=== PATIENT | male | born 1965 | race Two or more races ===

== ENCOUNTER 2019-09-11 20:42 | Emergency (ER) | payer SELFPAY ==
[2019-09-11] MEDS ORDERED: Sodium Chloride 0.9% 10 ML SDV IV ONE (20:43)
--- NOTE | 2019-09-11 21:09 | EDM.PDOC ---
ED HPI GENERAL MEDICAL PROBLEM - General Chief Complaint: Lower Extremity Injury/Pain Stated Complaint: PAIN IN RIGHT LEG Time Seen by Provider: 09/11/19 21:02 Source of Information: Reports: Patient - History of Present Illness INITIAL COMMENTS - FREE TEXT/NARRATIVE: HISTORY AND PHYSICAL: History of present illness: [Patient complains of pain concerning the right epididymis testicle is high [place] no mass scarred lesion is appreciated on exam tender epididymis and the right, patient complains of some perirectal pain while sitting he has no fever nausea vomiting chills sweats no chest pain shortness breath headache dizziness palpitation no bowel or urine symptoms ] Review of systems: As per history of present illness and below otherwise all systems reviewed and negative. Past medical history: As per history of present illness and as reviewed below otherwise noncontributory. Surgical history: As per history of present illness and as reviewed below otherwise noncontributory. Social history: No reported history of drug or alcohol abuse. Family history: As per history of present illness and as reviewed below otherwise noncontributory. Physical exam: HEENT: Atraumatic, normocephalic, pupils reactive, negative for conjunctival pallor or scleral icterus, mucous membranes moist, throat clear, neck supple, nontender, trachea midline. Lungs: Clear to auscultation, breath sounds equal bilaterally, chest nontender. Heart: S1S2, regular, negative for clicks, rubs, or JVD. Abdomen: Soft, nondistended, nontender. Negative for masses or hepatosplenomegaly. Negative for costovertebral tenderness. Pelvis: Stable nontender. Genitourinay As per history of present illness recctal: Deferred by patient Extremities: Atraumatic, negative for cords or calf pain. Neurovascular unremarkable. Neuro: Awake, alert, oriented. Cranial nerves II through XII unremarkable. Cerebellum unremarkable. Motor and sensory unremarkable throughout. Exam nonfocal. Diagnostics: [EBC CMP UA GC Chlamydia Scrotum and contents ultrasound ] Therapeutics: [ insulin 5 units subcutaneous Rocephin 1 g IM Azithromycin 1 g by mouth Keflex 500 by mouth twice a day #20 no refill ] Impression: [ right epididymitis hyperglycemia Chronic history of baseline ] Definitive disposition and diagnosis as appropriate pending reevaluation and review of above. Right Groin Pain Score (Numeric/FACES): 7 - Related Data Allergies Allergy/AdvReac Type Severity Reaction Status Date / Time Penicillins Allergy Rash Verified 09/11/19 20:59 Home Meds: Home Meds Losartan Potassium 100 mg PO DAILY 09/11/19 [History] Metoprolol Succinate [Toprol XL] 25 mg PO DAILY 09/11/19 [History] atorvaSTATin [Lipitor] 40 mg PO DAILY 09/11/19 [History] metFORMIN HCl [Fortamet] 1,000 mg PO BID 09/11/19 [History] Past Medical History HEENT History: Reports: None Cardiovascular History: Reports: High Cholesterol, Hypertension Respiratory History: Reports: None Gastrointestinal History: Reports: None Genitourinary History: Reports: None Musculoskeletal History: Reports: None Neurological History: Reports: None Psychiatric History: Reports: None Endocrine/Metabolic History: Reports: Diabetes, Type II Hematologic History: Reports: None Immunologic History: Reports: None Oncologic (Cancer) History: Reports: None Dermatologic History: Reports: None - Infectious Disease History Infectious Disease History: Reports: None - Past Surgical History Head Surgeries/Procedures: Reports: None Social & Family History - Tobacco Use Smoking Status *Q: Never Smoker - Recreational Drug Use Recreational Drug Use: No Review of Systems - Review of Systems Review Of Systems: See Below ED EXAM, GENERAL - Physical Exam Exam: See Below Course - Vital Signs Last Recorded V/S: Last Vital Signs Temp 96.6 F 09/11/19 20:57 Pulse 82 09/11/19 20:57 Resp 16 09/11/19 20:57 BP 173/92 H 09/11/19 20:57 Pulse Ox 99 09/11/19 20:57 - Orders/Labs/Meds Orders: Active Orders 24 hr Category Date Time Status Scrotal Duplex Ltd [US] Routine Exams 09/11/19 21:50 Taken CHLAMYDIA AND GONORRHEA BY [facility] Stat Lab 09/11/19 21:15 Received Labs: Laboratory Tests 09/11/19 09/11/19 09/11/19 Range/Units 21:15 21:27 21:27 WBC 8.77 (4.0-11.0) K/uL RBC 5.06 (4.50-5.90) M/uL Hgb 14.8 (13.0-17.0) g/dL Hct 42.4 (38.0-50.0) % MCV 83.8 (80.0-98.0) fL MCH 29.2 (27.0-32.0) pg MCHC 34.9 (31.0-37.0) g/dL RDW Std Deviation 37.3 (28.0-62.0) fl RDW Coeff of Chavez 12 (11.0-15.0) % Plt Count 283 (150-400) K/uL MPV 10.90 (7.40-12.00) fL Neut % (Auto) 64.3 (48.0-80.0) % Lymph % (Auto) 25.7 (16.0-40.0) % Hardy % (Auto) 7.9 (0.0-15.0) % Eos % (Auto) 1.8 (0.0-7.0) % Baso % (Auto) 0.3 (0.0-1.5) % Neut # (Auto) 5.6 (1.4-5.7) K/uL Lymph # (Auto) 2.3 (0.6-2.4) K/uL Hardy # (Auto) 0.7 (0.0-0.8) K/uL Eos # (Auto) 0.2 (0.0-0.7) K/uL Baso # (Auto) 0.0 (0.0-0.1) K/uL Nucleated RBC % 0.0 /100WBC Nucleated RBCs # 0 K/uL Sodium 137 (136-148) mmol/L Potassium 4.2 (3.5-5.1) mmol/L Chloride 100 (98-107) mmol/L Carbon Dioxide 27.5 (21.0-32.0) mmol/L BUN 20 H (7.0-18.0) mg/dL Creatinine 1.2 (0.8-1.3) mg/dL Est Cr Clr Drug Dosing 58.24 mL/min Estimated GFR (MDRD) > 60.0 ml/min Glucose 337 H (74-106) mg/dL Calcium 8.9 (8.5-10.1) mg/dL Total Bilirubin 0.5 (0.2-1.0) mg/dL AST 17 (15-37) IU/L ALT 23 (14-63) IU/L Alkaline Phosphatase 120 H (46-116) U/L Troponin I < 0.050 (0.000-0.056) ng/mL Total Protein 7.6 (6.4-8.2) g/dL Albumin 3.4 (3.4-5.0) g/dL Globulin 4.2 H (2.6-4.0) g/dL Albumin/Globulin Ratio 0.8 L (0.9-1.6) Prostate Specific Ag (0.05-4.00) ng/mL Urine Color YELLOW Urine Appearance CLEAR Urine pH 6.0 (5.0-8.0) Ur Specific [place] 1.015 (1.001-1.035) Urine Protein 100 H (NEGATIVE) mg/dL Urine Glucose (UA) >=1000 (NEGATIVE) mg/dL Urine Ketones NEGATIVE (NEGATIVE) mg/dL Urine Occult Blood SMALL H (NEGATIVE) Urine Nitrite NEGATIVE (NEGATIVE) Urine Bilirubin NEGATIVE (NEGATIVE) Urine Urobilinogen 0.2 (<2.0) EU/dL Ur Leukocyte Esterase NEGATIVE (NEGATIVE) Urine RBC 1-3 (0-2/HPF) Urine WBC 0-1 (0-5/HPF) Ur Epithelial Cells RARE (NONE-FEW) Urine Bacteria RARE (NEGATIVE) 09/11/19 Range/Units 21:27 WBC (4.0-11.0) K/uL RBC (4.50-5.90) M/uL Hgb (13.0-17.0) g/dL Hct (38.0-50.0) % MCV (80.0-98.0) fL MCH (27.0-32.0) pg MCHC (31.0-37.0) g/dL RDW Std Deviation (28.0-62.0) fl RDW Coeff of Chavez (11.0-15.0) % Plt Count (150-400) K/uL MPV (7.40-12.00) fL Neut % (Auto) (48.0-80.0) % Lymph % (Auto) (16.0-40.0) % Hardy % (Auto) (0.0-15.0) % Eos % (Auto) (0.0-7.0) % Baso % (Auto) (0.0-1.5) % Neut # (Auto) (1.4-5.7) K/uL Lymph # (Auto) (0.6-2.4) K/uL Hardy # (Auto) (0.0-0.8) K/uL Eos # (Auto) (0.0-0.7) K/uL Baso # (Auto) (0.0-0.1) K/uL Nucleated RBC % /100WBC Nucleated RBCs # K/uL Sodium (136-148) mmol/L Potassium (3.5-5.1) mmol/L Chloride (98-107) mmol/L Carbon Dioxide (21.0-32.0) mmol/L BUN (7.0-18.0) mg/dL Creatinine (0.8-1.3) mg/dL Est Cr Clr Drug Dosing mL/min Estimated GFR (MDRD) ml/min Glucose (74-106) mg/dL Calcium (8.5-10.1) mg/dL Total Bilirubin (0.2-1.0) mg/dL AST (15-37) IU/L ALT (14-63) IU/L Alkaline Phosphatase (46-116) U/L Troponin I (0.000-0.056) ng/mL Total Protein (6.4-8.2) g/dL Albumin (3.4-5.0) g/dL Globulin (2.6-4.0) g/dL Albumin/Globulin Ratio (0.9-1.6) Prostate Specific Ag 1.99 (0.05-4.00) ng/mL Urine Color Urine Appearance Urine pH (5.0-8.0) Ur Specific [place] (1.001-1.035) Urine Protein (NEGATIVE) mg/dL Urine Glucose (UA) (NEGATIVE) mg/dL Urine Ketones (NEGATIVE) mg/dL Urine Occult Blood (NEGATIVE) Urine Nitrite (NEGATIVE) Urine Bilirubin (NEGATIVE) Urine Urobilinogen (<2.0) EU/dL Ur Leukocyte Esterase (NEGATIVE) Urine RBC (0-2/HPF) Urine WBC (0-5/HPF) Ur Epithelial Cells (NONE-FEW) Urine Bacteria (NEGATIVE) Meds: Medications Discontinued Medications Generic Name Dose Route Start Last Admin Trade Name Freq PRN Reason Stop Dose Admin Azithromycin 1,000 mg 09/11/19 22:46 Zithromax PO 09/11/19 22:47 NOW STA Ceftriaxone Sodium 1 gm 09/11/19 22:45 Rocephin IM 09/11/19 22:46 ONETIME ONE Lidocaine HCl Confirm 09/11/19 23:03 09/11/19 23:06 Xylocaine-Mpf 1% Administered 09/11/19 23:04 Not Given Dose 4 mls @ as directed .ROUTE .STK-MED ONE Insulin Human Regular 5 unit 09/11/19 22:02 09/11/19 22:28 Novolin R SUBCUT 09/11/19 22:03 5 unit NOW STA Administration Protocol Lidocaine HCl 2.1 ml 09/11/19 23:03 Xylocaine-Mpf 1% INJECT 09/11/19 23:04 ONETIME ONE Departure - Departure Time of Disposition: 23:10 Disposition: Home, Self-Care 01 Condition: Good Clinical Impression: Epididymitis - Discharge Information Referrals: PCP,None [Primary Care Provider] - Forms: ED Department Discharge Additional Instructions: The following information is given to patients seen in the emergency department who are being discharged to home. This information is to outline your options for follow-up care. We provide all patients seen in our emergency department with a follow-up referral. The need for follow-up, as well as the timing and circumstances, are variable depending upon the specifics of your emergency department visit. If you don't have a primary care physician on staff, we will provide you with a referral. We always advise you to contact your personal physician following an emergency department visit to inform them of the circumstance of the visit and for follow-up with them and/or the need for any referrals to a consulting specialist. The emergency department will also refer you to a specialist when appropriate. This referral assures that you have the opportunity for follow-up care with a specialist. All of these measure are taken in an effort to provide you with optimal care, which includes your follow-up. Under all circumstances we always encourage you to contact your private physician who remains a resource for coordinating your care. When calling for follow-up care, please make the office aware that this follow-up is from your recent emergency room visit. If for any reason you are refused follow-up, please contact the [facility] emergency department at and asked to speak to the emergency department charge nurse. - My Orders Last 24 Hours: My Active Orders 09/11/19 21:15 CHLAMYDIA AND GONORRHEA BY [facility] Stat 09/11/19 21:50 Scrotal Duplex Ltd [US] Routine - Assessment/Plan Last 24 Hours: My Active Orders 09/11/19 21:15 CHLAMYDIA AND GONORRHEA BY [facility] Stat 09/11/19 21:50 Scrotal Duplex Ltd [US] Routine
[2019-09-11 21:55] LABS: BLOOD UREA NITROGEN,BUN 20 mg/dL (7.0-18.0); CARBON DIOXIDE,CO2 27.5 mmol/L (21.0-32.0); CHLORIDE,CL 100 mmol/L (98-107); GLUCOSE RANDOM 337 mg/dL (74-106); POTASSIUM,K 4.2 mmol/L (3.5-5.1); SODIUM,NA 137 mmol/L (136-148)
[2019-09-11] MEDS ORDERED: Insulin Regular, Human 100 Units/ML 10 ML Vial SUBCUT STA (22:02)
[2019-09-11] MEDS ORDERED: cefTRIAXone 1 GM Vial IM ONE (22:45)
[2019-09-11] MEDS ORDERED: Azithromycin 250 MG Tab PO STA (22:46)
--- NOTE | 2019-09-11 22:48 | US ---
INDICATION: Right groin pain. TECHNIQUE: Trans scrotal imaging. Color and spectral Doppler. COMPARISON: None. FINDINGS: The right testicle measures 3.6 x 2.2 x 3 cm. The left testicle measures 3.7 x 2 x 3 cm. Normal homogeneous echotexture of both testicles. No masses or abnormal calcifications. Epididymides appear unremarkable. No hydrocele. No varicocele. IMPRESSION: Normal study. Dictated by Sheng Souza MD @ 09/11/2019 10:48:03 PM Dictated by: Sheng Souza MD @ 09/11/2019 22:48:09 (Electronically Signed)
[2019-09-11] MEDS ORDERED: Lidocaine 1% PF 2 ML SDV INJECT ONE (23:03)
[2019-09-11] MEDS ORDERED: Lidocaine 1% 2 ML ONE (23:03)
== END 2019-09-11 23:35 | disposition home or self-care (01) ==
LOC: MW.ED 20:42
DX: N45.1 Epididymitis (principal); E11.65 Type 2 diabetes mellitus with hyperglycemia; I10 Essential (primary) hypertension; E78.00 Pure hypercholesterolemia, unspecified; Z79.84 Long term (current) use of oral hypoglycemic drugs; Z79.899 Other long term (current) drug therapy; Z88.0 Allergy status to penicillin
CPT/HCPCS: 36415; 76870; 80053; 81001; 84153; 84484; 85025; 87491; 87591; 93976; 96372; 99284; A9270; J0696; J2001; J7050; J1815-GY